=== PATIENT | female | born 1955 | race Caucasian/White ===

== ENCOUNTER 2016-08-14 09:18 | Day surgery (SDC) | payer BC ==
[2016-08-06 12:08] LABS: HEMOGLOBIN 14.2 g/dL (12.0-16.0)
[2016-08-06 12:37] LABS: BUN (BLOOD UREA NITROGEN) 29 MG/DL (6-23); CALCIUM, SERUM 9.4 MG/DL (8.5-10.4); CHLORIDE, SERUM 107 MMOL/L (96-112); CO2 (CARBON DIOXIDE) 31 MMOL/L (24-34); CREATININE 0.74 MG/DL (0.55-1.02); GFR AFRICAN AMERICAN 102 ML/MIN (>=60); GFR NON AFRICAN AMERICAN 88 ML/MIN (>=60); GLUCOSE, SERUM 121 MG/DL (60-99); POTASSIUM, SERUM 4.5 MMOL/L (3.5-5.3); SODIUM, SERUM 143 MMOL/L (135-148)
--- NOTE | ~2016-08-14 | OP ---
Record Of Operation [facility] [address] [place]. [address] NAME: TALI LÓPEZ : 57 STATUS : [facility]#: [id number] AGE: 61 ADM/REG DATE : 08/14/16 MR#: [id number] REPORT SERV DATE: 08/17/16 DICTATED BY: RONAN LÓPEZ DATE: 08/14/16 REPORT STATUS : Draft TRANSCRIBED BY: MODL DATE: 08/14/16 DATE OF PROCEDURE: 08/14/2016 PREOPERATIVE DIAGNOSES: Symptomatic cholelithiasis, history of biliary pancreatitis. POSTOPERATIVE DIAGNOSES: Symptomatic cholelithiasis, history of biliary pancreatitis. PROCEDURE: Laparoscopic cholecystectomy. SURGEON: Ronan López M.D. RESIDENT: Ranjit Grady M.D. FLUIDS: Approximately 1 L of crystalloid. BLOOD LOSS: Minimal. ANESTHESIA: General with local. COMPLICATIONS: None. SPECIMEN: Gallbladder. INDICATION FOR PROCEDURE: A 61-year-old female with a history of biliary pancreatitis and symptomatic cholelithiasis, here for an elective cholecystectomy. Risks, benefits, alternatives were discussed at length with the patient, and the patient wished to proceed. DESCRIPTION OF PROCEDURE: The patient was brought into the operative suite and placed in the supine position. The patient was prepped and draped in a normal sterile fashion after general endotracheal anesthesia. A time-out was performed. The patient was properly identified. Preoperative antibiotics were given. A 12 mm incision was made at the umbilicus. Blunt dissection was carried down to the fascia. The fascia was grasped and elevated, sharply incised, and a tie of [id number] suture was placed in the fascia, and trocar was then placed. Following that, the abdomen was insufflated. The patient tolerated insufflation well. More trocars were placed one 10 mm in subxiphoid and two more placed in the subcostal and right upper quadrant. The patient was then placed left side down and in reverse Trendelenburg. Gallbladder was grasped and retracted lcranially with the lateral port. Peritoneal attachments of the gallbladder were bluntly and sharply dissected out to allow the cystic duct and cystic artery. The cystic duct and cystic artery were dissected until the critical view of safety was obtained. The cystic duct was then clipped and divided, the cystic artery was doubly clipped and divided, and the gallbladder was then removed from the gallbladder fossa with loop electrocautery. Gallbladder was placed in an Endopouch. Gallbladder fossa and the right upper quadrant were irrigated with 60 mL of normal saline, suctioned until clear. Gallbladder fossa was visualized. There was no bleeding or bile. The clips were in place. Trocars were removed under direct visualization. The umbilical trocar was removed. Pneumoperitoneum was released. The Record Of Operation [address] [place]. [address] NAME: TALI LÓPEZ : 57 STATUS : [facility] PAT#: [id number] AGE: 61 ADM/REG DATE : 08/14/16 MR#: [id number] REPORT SERV DATE: 08/17/16 DICTATED BY: RONAN LÓPEZ AMPARO DATE: 08/14/16 REPORT STATUS : Draft TRANSCRIBED BY: KAILEE DATE: 08/14/16 [id number] suture was then tied with 0 Vicryl. Skin incision closed with 4-0 Monocryl. Dermabond was applied to the patient. The patient tolerated the procedure well and was transferred to recovery in stable condition. DICTATED BY: Ranjit Grady MD CB/KAILEE Ronan López MD / [id number] CC: MD Booker Schumacher Gregory Joseph
[~2016-08-14 09:18] MED LIST: ATEN25 PO; FLONASE NAS; LEVOTHYROXIN88 MCG PO; MULTIPLE VIT PO
== END 2016-08-14 16:30 | disposition home or self-care (01) ==
LOC: SDC 09:18
PROVIDERS: Surgery
PROC: 0FT44ZZ Resection of Gallbladder, Percutaneous Endoscopic Approach (ICD-10-PCS; principal; 2016-08-14 10:30)
DX: K80.10 Calculus of gallbladder with chronic cholecystitis without obstruction (principal); Z87.19 Personal history of other diseases of the digestive system; I10 Essential (primary) hypertension; E89.0 Postprocedural hypothyroidism; Z90.89 Acquired absence of other organs; Z83.3 Family history of diabetes mellitus; Z82.49 Family history of ischemic heart disease and other diseases of the circulatory system; Z80.3 Family history of malignant neoplasm of breast; Z80.1 Family history of malignant neoplasm of trachea, bronchus and lung; Z88.2 Allergy status to sulfonamides; Z88.5 Allergy status to narcotic agent; Z79.51 Long term (current) use of inhaled steroids; Z79.899 Other long term (current) drug therapy
CPT/HCPCS: 80048; 82962; 85014; 85018; 88304; 93005; J0690; J2250; J2270; J2405; J2710; J3010; Q9967